=== PATIENT | male | born 1965 | race Caucasian/White ===

== ENCOUNTER 2025-06-23 08:59 | Emergency (ER) | payer OTHER, SELFPAY ==
[2025-06-23 09:06] VITALS: BP 132/78; PULSE 81; RESP 20; TEMP 36.4; O2SAT 99
--- NOTE | 2025-06-23 09:38 | ED.URI ---
HPI - URI/Sore Throat General Chief Complaint: Upper Respiratory Infection Stated Complaint: cough/aches Time Seen by Provider: 06/23/25 09:38 Source: patient, RN notes reviewed and old records reviewed Mode of arrival: ambulatory Limitations: no limitations History of Present Illness HPI Narrative: 59 year old male who presents to [facility] care with complaints of nasal drainage, cough,sore throat, feels achy and has frequent sneezing for 2 days.. Patient reports that has COVID and friends have Influenza A and he wants to know what he has. Patient reports that he has taken Manish [place] cold medication for his symptoms and he did use Afrin nasal spray last night. Patient reports that he has not had any known fevers. MD elicited complaint: cough and sore throat Onset (ago): day(s) (2) Treatments prior to arrival: other (manish seltzer cold medication and Afrin nasal spray) Related Data Home Medications ?Medication ?Instructions ?Recorded ?Confirmed ?Last Taken ?Type empagliflozin 25 mg tablet mg 06/23/25 Unknown History (Jardiance) fosinopril 20 tablet 06/23/25 Unknown History mg-hydrochlorothiazide 12.5 mg tablet modafinil 200 mg tablet mg 06/23/25 Unknown History sildenafil 100 mg tablet mg 06/23/25 Unknown History solriamfetol 150 mg tablet (Sunosi) mg 06/23/25 Unknown History tamsulosin 0.4 mg capsule mg PO 06/23/25 Unknown History tirzepatide (weight loss) 12.5 mg subcut 06/23/25 Unknown History mg/0.5 mL subcutaneous pen injector (Zepbound) zolpidem 10 mg tablet mg 06/23/25 Unknown History Allergies Allergy/AdvReac Type Severity Reaction Status Date / Time No Known Allergies Allergy Unverified 07/04/17 16:06 Review of Systems Review of Systems: CONSTITUTIONAL:Reports malaise, no chills, sweats, or fever. EYES: Denies visual changes, redness, or discharge. ENT: Reports rhinorrhea, congestion, sinus pain, no otalgia and +sore throat. CARDIOVASCULAR: Denies chest pain, palpitations, or edema. RESPIRATORY: Reports cough.? Denies dyspnea. GASTROINTESTINAL: Denies abdominal pain, nausea, vomiting, diarrhea SKIN: Denies rash or itching. MUSCULOSKELETAL:reports myalgia. NEUROLOGIC: Denies headache. All systems reviewed & are unremarkable except as noted in HPI and below PMFSH Past Medical History Medical History (Updated 06/25/25 @ 08:19 by Carly Clements APRN) BPH (benign prostatic hyperplasia) Diabetes Hypertension Social History Social History (Updated 06/25/25 @ 08:18 by Carly Clements APRN) Smoking status: Never smoker Alcohol intake: current Alcohol use details: social Substance use type: does not use Occupation/Education: retired Gender identity (if verbalized by the patient): Male Comments At time of signature, agree with nursing past medical, surgical, social and family history. There is no relevant family history pertinent to the presenting complaint Exam Narrative: GENERAL: Well-appearing, well-nourished, and in no acute distress. HEAD: Normocephalic EYES: PERRLA, conjunctivae clear ENT: Nares clear, turbinates edematous and erythematous, clear discharge. Mucous membranes moist. TM pearly powers with dull light reflex bilaterally; no tragal tenderness. Oropharynx erythematous without lesions. Tonsils not enlarged and without exudate, no drooling, no hoarseness, no trismus, uvula midline.post nasal drainage NECK: Supple. No lymphadenopathy CHEST: Clear to auscultation, breath sounds equal. No wheezing, rhonchi, rales, or stridor. No respiratory distress, speaks in full sentences.dry cough noted SAO2 99% on room air HEART: Regular rate and rhythm. No murmur heard. SKIN: Warm, dry, no rash. NEURO: Alert and oriented x3. PSYCH: Normal mood and affect Course Course Level of Care: Express Care Visit Vital Signs Vital signs: Vital Signs Temperature 36.4 C 06/23/25 09:06 Pulse Rate 81 06/23/25 09:06 Respiratory Rate 20 06/23/25 09:06 Blood Pressure 132/78 06/23/25 09:06 Pulse Oximetry 99 06/23/25 09:06 Oxygen Delivery Room Air 06/23/25 09:06 Temperature 36.4 C 06/23/25 09:06 Pulse Rate 81 06/23/25 09:06 Respiratory Rate 20 06/23/25 09:06 Blood Pressure 132/78 06/23/25 09:06 Pulse Oximetry 99 12/15/25 09:06 Oxygen Delivery Room Air 06/23/25 09:06 reviewed [facility] Narrative Medical decision making narrative: 59 year old male who presents with URI symptoms has been exposed to COVID and influenza. Patient tested positive for COVID today. Anticipatory guidance and reasons to seek care in ED reviewed with understanding voiced. Differential Diagnosis Differential Diagnosis: Differential diagnostic considerations for upper respiratory infection include upper respiratory infection, croup, otitis media, sinusitis, viral infection, bronchitis, influenza, pharyngitis, strep, uvulitis.? Lab Data [facility] Lab Attestation statement: I personally reviewed the patient's lab results. Lab results narrative: Covid antigen positive, Influenza A&B negative Labs: Lab Results 06/23/25 Range/Units 09:59 POC Influenza A Ag Negative (Negative) POC Influenza B Ag Negative (Negative) POC SARS CoV-2 Ag Positive (Negative) reviewed Critical Care Time Critical Care Time Critical Care Time: No Discharge Plan Discharge Clinical Impression: COVID-19 Patient Disposition: Home Condition: Stable Instructions: How to Recover from COVID-19 at Home (ED) Additional Instructions: Increase fluids especially juices and water [id number] cough and cold medicine of your choice for your symptoms, recommend Delsym or Robitussin DM Zyrtec Claritin or Daxa daily include Coricidin brand decongestant heat to the face 20-30 minutes 4-6 times a day for pain Salt water gargles, throat lozenges or throat sprays as desired If your symptoms persist, change or worsen significantly before you can contact your personal physician then please, without delay, go to the emergency department for further evaluation. Follow-up with PCP in 7-10 days or sooner if needed Follow up with PCP soon in regards to your blood pressure which is elevated above threshold for referral. Blood pressure above 120/80 may indicate pre-hypertension. 132/78 COVID-19 DISCHARGE The following recommendations have been made by the CDC and local Health Departments, regarding COVID-19: Those individuals with mild cases of COVID-19 can generally be discontinued from isolation, 5 days AFTER the onset of symptoms AND the resolution of fever for 24hrs (without the use of fever-reducing medications) Those individuals who were asymptomatic, and tested positive, are discontinued from isolation 10 days AFTER their first positive COVID-19 test Those individuals with SEVERE to CRITICAL illness or immunocompromised diseases may require up to 20 days of home isolation or hospitalization Majority of mild to moderate cases can be treated at home, without hospitalization or prescription medications You do not need a negative test result to return to work/school, assuming the above recommendations have been met and you are not symptomatic. At this time, return to work/school notes will not be provided. Guidelines from the local Health Department, CDC, and workplace are expected to be followed. All individuals in the household need to remained quarantined for up to 14 days if asymptomatic OR 10 days after the start of symptoms. Everyone in the home DOES NOT require testing, they are presumed positive and should quarantine as directed. Treating symptoms for mild to moderate cases may include: Tylenol, Flonase/nasal spray, OTC cold/flu medications recommended from your provider or any necessary prescription medications provided at your visit or from your PCP IF YOU TESTED NEGATIVE If you are symptomatic with reason to believe you have COVID-19, there is a high possibility your rapid test may not have detected the virus. Rapid testing is dependent on timing and viral load and may have a false-negative reading You should follow appropriate guidelines regarding quarantine, hand washing, mask wearing, and social distancing You may be sent for PCR testing as an outpatient to the [facility] site Common Adult Symptoms: Fever/chills Cough Shortness of breath Fatigue, muscle aches Headache Loss of taste/smell Sore throat, congestion, runny nose GI symptoms (nausea, vomiting, diarrhea) Common Pediatric Symptoms Cough Fever GI symptoms (diarrhea, upset stomach, nausea, vomiting) Symptoms may differ in severity however, most cases do not require hospitalization. WHEN TO SEEK ER EVALUATION/TREATMENT Severe/persistent shortness of breath or difficulty breathing Elevated, persistent fevers without resolution with fever-reducing medications Chest pain Extreme fatigue/lethargy Complications of pre-existing disease Patient Language: Yi Prescriptions: No Action fosinopril-hydrochlorothiazide 20-12.5 mg tablet sildenafil 100 mg tablet modafinil 200 mg tablet tamsulosin 0.4 mg capsule PO zolpidem 10 mg tablet Jardiance 25 mg tablet Sunosi 150 mg tablet Zepbound 12.5 mg/0.5 mL pen injector SUBCUT Follow-up/Referrals: Ciro,Remi Lewis PA-C [Primary Care Provider] Time of Disposition: 09:51 Quality [place] Coma Scale Eyes: Open Verbal: Oriented and Alert Motor: Follows Commands Daniel Coma Total Score: 15
[2025-06-23 10:02] LABS: EDCOVIDSCREEN Positive (Negative); EDINFLUASCREEN Negative (Negative); EDINFLUBSCREEN Negative (Negative)
== END 2025-06-23 09:58 | disposition home or self-care (01) ==
PROVIDERS: Emergency Provider Registered Nurse; PCP Physician Assistant
DX: U07.1 COVID-19 (principal); E11.9 Type 2 diabetes mellitus without complications; Z79.85 Long-term (current) use of injectable non-insulin antidiabetic drugs; I10 Essential (primary) hypertension; N40.0 Benign prostatic hyperplasia without lower urinary tract symptoms
CPT/HCPCS: 87426; 87804; 99212; G0463